=== PATIENT | female | born 1940 | race Caucasian/White ===

== ENCOUNTER 2019-10-27 16:46 | Emergency (ER) | payer MEDICARE ==
[~2019-10-27] VITALS: Ht 162.6 cm; Wt 72.7 kg
[~2019-10-27 16:46] MED LIST: ATOR20TA66 PO; BUDE10.2 INH; GABA-532 PO; IBUP-1986 PO; IPRA3AMP9 NEB; LISI-600 PO; PRED20TA PO
--- NOTE | 2019-10-27 17:17 | NUR ---
Yousif ramachandran in ED - 10/27/19 at [address] scan
--- NOTE | 2019-10-27 17:39 | NUR ---
Yousif ramachandran in ED - 10/27/19 at 1740 by [email or web address] Back from CT scan
[2019-10-27 18:38] LABS: BASOPHILS # (AUTO) 0.1 X10'3 (0-0.2); BASOPHILS % (AUTO) 0.7 % (0-1); EOSINOPHILS # (AUTO) 1.3 X10'3 (0-0.9); EOSINOPHILS % (AUTO) 7.9 % (0-6); HEMATOCRIT 41.2 % (35.0-45.0); HEMOGLOBIN 13.3 g/dl (12.0-16.0); LYMPHOCYTES # (AUTO) 1.8 X10'3 (1.1-4.8); LYMPHOCYTES % (AUTO) 11.4 % (21-51); MEAN CORPUSCULAR HEMOGLOBIN 30.1 PG (27.0-31.0); MEAN CORPUSCULAR HGB CONC 32.2 g/dL (33.0-36.5); MEAN CORPUSCULAR VOLUME 93.5 FL (78-98); MEAN PLATELET VOLUME 9.2 FL (7.4-10.4); MONOCYTES # (AUTO) 1.4 X10'3 (0-0.9); MONOCYTES % (AUTO) 8.8 % (2-12); NEUTROPHILS # (AUTO) 11.4 X10'3 (1.8-7.7); NEUTROPHILS % (AUTO) 71.2 % (42-75); PLATELET COUNT 336 X10'3 (140-440); RED BLOOD COUNT 4.41 X10'6 (4.20-5.60); RED CELL DISTRIBUTION WIDTH 14.3 % (11.5-14.5); WHITE BLOOD COUNT 16.1 X10'3 (4.5-11.0)
[2019-10-27 18:54] LABS: ALANINE AMINOTRANSFERASE 8 U/L (12-78); ALBUMIN 2.8 G/DL (3.4-5.0); ALBUMIN/GLOBULIN RATIO 0.7 (1.1-1.5); ALKALINE PHOSPHATASE 62 IU/L (46-116); ANION GAP 6 (8-16); ASPARTATE AMINO TRANSFERASE 15 U/L (10-37); BILIRUBIN,TOTAL 0.6 MG/DL (0.1-1.0); BLOOD UREA NITROGEN 10 MG/DL (7-18); BUN/CREATININE RATIO 13.3 (6.6-38.0); CALCIUM 8.1 MG/DL (8.5-10.1); CHLORIDE 102 MMOL/L (99-107); CREATININE 0.75 MG/DL (0.40-0.90); GLUCOSE 118 MG/DL (70-104); POTASSIUM 3.5 MMOL/L (3.5-5.1); SODIUM 137 MMOL/L (135-145); TOTAL CARBON DIOXIDE 29.2 MMOL/L (24-32); TOTAL PROTEIN 6.9 G/DL (6.4-8.2); eGFR 75 ML/MIN
[2019-10-27] MEDS ORDERED: AZIT250T PO (19:05)
[2019-10-27 19:40] VITALS: BP 129/65
== END 2019-10-27 19:41 | disposition home or self-care (01) ==
LOC: ER 16:47
DX: J06.9 Acute upper respiratory infection, unspecified (principal); Z20.828 Contact with and (suspected) exposure to other viral communicable diseases; J44.9 Chronic obstructive pulmonary disease, unspecified; G89.29 Other chronic pain; Z90.49 Acquired absence of other specified parts of digestive tract; Z98.890 Other specified postprocedural states; Z91.018 Allergy to other foods; Z88.0 Allergy status to penicillin; Z91.012 Allergy to eggs; Z79.899 Other long term (current) drug therapy
CPT/HCPCS: 36415; 71045; 80053; 85025; 87635; 99284

== ENCOUNTER 2021-12-16 01:13 | Emergency (ER) | payer MEDICARE ==
[~2021-12-16] VITALS: Ht 160 cm; Wt 72.0 kg
[~2021-12-16 01:13] MED LIST changes: -LISI-600 PO; +LISI20TA28 PO
[2021-12-16 01:26] VITALS: BP 140/86
== END 2021-12-16 02:48 | disposition left against medical advice (07) ==
LOC: ER 01:14
DX: R51.9 Headache, unspecified (principal); Z53.21 Procedure and treatment not carried out due to patient leaving prior to being seen by health care provider

== ENCOUNTER 2022-01-02 18:23 | Emergency (ER) | payer MEDICARE ==
[~2022-01-02] VITALS: Ht 167.6 cm; Wt 180.0 kg
[2022-01-02 19:30] VITALS: BP 189/92
[2022-01-02] MEDS ORDERED: orphenadrine citrate 60mg/2ml inj. IM ONE (19:40)
[2022-01-02] MEDS ORDERED: acetaminophen 325mg tablet PO ONE (19:40)
[2022-01-02] MEDS ORDERED: LIDOcaine 5% patch TP ONE (19:40)
[2022-01-02] MEDS ORDERED: ketorolac trometh inj. 60 MG/2 ML VIAL IM ONE (19:40)
[2022-01-02] MEDS ORDERED: HYDROcodone/acetaminophen 10/325mg tab PO ONE (19:40)
[2022-01-02] MEDS ORDERED: bisacodyl 5mg tablet.DR PO ONE (20:05)
[2022-01-02] MEDS ORDERED: methylnaltrexone br 12mg/0.6ml inj***SubQ only SQ ONE (20:05)
[2022-01-02 20:14] LABS: BASOPHILS # (AUTO) 0.1 X10'3 (0-0.2); BASOPHILS % (AUTO) 0.8 % (0-1); EOSINOPHILS # (AUTO) 0.7 X10'3 (0-0.9); EOSINOPHILS % (AUTO) 4.8 % (0-6); HEMATOCRIT 45.2 % (35.0-45.0); HEMOGLOBIN 14.4 g/dl (12.0-16.0); LYMPHOCYTES # (AUTO) 2.1 X10'3 (1.1-4.8); LYMPHOCYTES % (AUTO) 14.9 % (21-51); MEAN CORPUSCULAR HGB CONC 31.8 g/dL (33.0-36.5); MEAN CORPUSCULAR VOLUME 88.3 FL (78-98); MEAN PLATELET VOLUME 8.6 FL (7.4-10.4); MONOCYTES # (AUTO) 1.5 X10'3 (0-0.9); MONOCYTES % (AUTO) 10.8 % (2-12); NEUTROPHILS # (AUTO) 9.7 X10'3 (1.8-7.7); NEUTROPHILS % (AUTO) 68.7 % (42-75); PLATELET COUNT 368 X10'3 (140-440); RED BLOOD COUNT 5.12 X10'6 (4.20-5.60)
[2022-01-02 20:30] LABS: ALANINE AMINOTRANSFERASE 17 U/L (12-78); ALBUMIN 3.1 G/DL (3.4-5.0); ALBUMIN/GLOBULIN RATIO 0.7 (1.1-1.5); ALKALINE PHOSPHATASE 62 IU/L (46-116); ANION GAP 1 (8-16); ASPARTATE AMINO TRANSFERASE 17 U/L (10-37); BILIRUBIN,TOTAL 0.6 MG/DL (0.1-1.0); BLOOD UREA NITROGEN 14 MG/DL (7-18); BUN/CREATININE RATIO 18.7 (6.6-38.0); CALCIUM 8.7 MG/DL (8.5-10.1); CHLORIDE 99 MMOL/L (99-107); CREATININE 0.75 MG/DL (0.40-0.90); GLUCOSE 112 MG/DL (70-104); POTASSIUM 3.7 MMOL/L (3.5-5.1); SODIUM 131 MMOL/L (135-145); TOTAL CARBON DIOXIDE 31.2 MMOL/L (24-32); TOTAL PROTEIN 7.4 G/DL (6.4-8.2); eGFR 75 ML/MIN
[2022-01-02 21:03] LABS: CLARITY,URINE CLEAR (Clear); COLOR,URINE YELLOW (Yellow); GLUCOSE, URINE NEGATIVE (Neg); KETONES,URINE NEGATIVE (Neg); LEUKOCYTE ESTERASE ,URINE NEGATIVE (Neg); OCCULT BLOOD,URINE NEGATIVE (Neg); PROTEIN,URINE NEGATIVE (Neg); UA COLLECTION TYPE STRAIGHT CATH
[2022-01-02 21:05] LABS: NITRITES, URINE NEGATIVE (Neg)
[2022-01-02] MEDS ORDERED: DICL50TA6 PO (22:09)
[2022-01-02] MEDS ORDERED: CYCL-1 PO (22:09)
[2022-01-02] MEDS ORDERED: LIDO700A32 TOP (22:09)
[2022-01-02] MEDS ORDERED: POLY119P2 PO (22:09)
== END 2022-01-02 22:23 | disposition home or self-care (01) ==
LOC: ER 18:23
DX: S39.012A Strain of muscle, fascia and tendon of lower back, initial encounter (principal); J44.9 Chronic obstructive pulmonary disease, unspecified; G89.29 Other chronic pain; Z88.0 Allergy status to penicillin; Z91.012 Allergy to eggs; Z90.49 Acquired absence of other specified parts of digestive tract; X58.XXXA Exposure to other specified factors, initial encounter; Y93.89 Activity, other specified; Y92.89 Other specified places as the place of occurrence of the external cause; Y99.8 Other external cause status
CPT/HCPCS: 36415; 71045; 74176; 80053; 81003; 83880; 84484; 85025; 93005; 96372; 99285; C1758; J1885; J2212; J2360